=== PATIENT | female | born 1960 | race Caucasian/White ===

== ENCOUNTER 2017-07-26 12:28 | Day surgery (SDC) | payer OTHER ==
[2017-07-26] VITALS (21 sets, daily range): BP systolic 88–179; BP diastolic 58–102; PULSE 17–92; RESP 16–21; Ht 149.9 cm; Wt 54.9 kg
[~2017-07-26] VITALS: Ht 149.9 cm; Wt 54.9 kg
[~2017-07-26 12:28] MED LIST: BACTDS PO; CEFAZOLIN 2 GM/50 ML (PMX) 50 ML IVPB ONE; CEFAZOLIN 2 GM/50 ML (PMX) 50 ML IVPB SCH; CEPH-443 PO; HYDR-906 PO; NEOSTIGMINE 3 MG/3 ML SYRINGE ONE; SOD CHLORIDE 0.9% 1,000 ML IV ONE; SOD CHLORIDE 0.9% 1,000 ML IV SCH; [UNRECOGNIZED DRUG - REMARK] PO
[2017-07-26] MEDS ORDERED: INSULIN ASPART [NOVOLOG] 3 ML PEN SC ONE (14:30)
[2017-07-26] MEDS ORDERED: AMIT10TA6 PO (14:31)
[2017-07-26] MEDS ORDERED: LOSA25TA5 PO (14:31)
[2017-07-26] MEDS ORDERED: VENL75CA89 PO (14:31)
[2017-07-26] MEDS ORDERED: [UNRECOGNIZED DRUG - OTHER] PO (14:31)
[2017-07-26] MEDS ORDERED: GLIM4TAB PO (14:31)
[2017-07-26] MEDS ORDERED: METF500T4 PO (14:31)
[2017-07-26] MEDS ORDERED: SUMA20SP NS (14:31)
[2017-07-26] MEDS ORDERED: OMEP40CA6 PO (14:31)
[2017-07-26] MEDS ORDERED: ATOR40TA68 PO (14:31)
[2017-07-26] MEDS ORDERED: SITA100T8 PO (14:31)
[2017-07-26] MEDS ORDERED: CITA-104 PO (14:31)
[2017-07-26] MEDS ORDERED: GABA300S PO (14:31)
[2017-07-26] MEDS ORDERED: MECL-113 PO (14:31)
[2017-07-26] MEDS ORDERED: MELO7.5O PO (14:31)
[2017-07-26] MEDS ORDERED: INSU100I33 SC (14:31)
[2017-07-26] MEDS ORDERED: CHOL100062 PO (14:31)
[2017-07-26] MEDS ORDERED: CARI350T29 PO (14:31)
[2017-07-26] MEDS ORDERED: MIDAZOLAM 1 MG/ML 2 ML INJ ONE (15:09)
[2017-07-26] MEDS ORDERED: BUPIVACAINE 0.25% (MPF) 30 ML INJ ONE (15:27)
[2017-07-26] MEDS ORDERED: BUPIVACAINE 0.25% (MPF) 30 ML INJ INJ ONE (15:32)
[2017-07-26] MEDS ORDERED: ROCURONIUM 50 MG INJ ONE (15:54)
[2017-07-26] MEDS ORDERED: LIDOCAINE 2% (SDV) 5 ML INJ ONE (15:54)
[2017-07-26] MEDS ORDERED: PROPOFOL 20 ML ONE (15:54)
[2017-07-26] MEDS ORDERED: CEFAZOLIN 1 GM INJ ONE (15:54)
[2017-07-26] MEDS ORDERED: ONDANSETRON 4 MG INJ ONE (15:55)
[2017-07-26] MEDS ORDERED: GLYCOPYRROLATE 0.4 MG INJ ONE (15:55)
--- NOTE | 2017-07-26 15:55 | OPR ---
Date/Time of Note Date/Time of Note DATE: 07/26/17 TIME: 15:52 Operative Report Procedure Date: Jul 26, 2017 Preoperative Diagnosis symptomatic gallstones Postoperative Diagnosis same Operation/Procedure Performed 1. laparoscopic cholecystectomy 2. therapeutic injection of subcutaneous local anesthesia Surgeon see signature line Director Of Dance none Anesthesia Type: general Estimated Blood Loss: 0 - 10 ml's Transfusion none Specimen gallbladder Grafts/Implants none Complications none Pt Condition Post Procedure: stable Indications This is a 56-year-old female with symptomatic gallstones. She requests surgical excision of her gallbladder. Risks alternatives benefits and percent were discussed with the patient. Patient expresses understanding and consents to the operation. Procedure Description Patient is taken to the OR and prepped and draped in usual sterile fashion. Surgical timeout was performed. IV antibiotics were given. Supraumbilical midline incision is made with a 15 blade. Dissection cauterie carried onto the fascia. The midline is opened and the balloon Ramirez trocar is introduced. Pneumoperitoneum is established. Midepigastric 12 mm optical trocar was placed under direct visualization. Right upper quadrant upper flank 5 mm optical trochars were placed under direct visualization. Upon initial inspection there are some adhesions to the gallbladder. The gallbladder was retracted in the lateral and our direction. Her cautery was used for lateral dissection. Careful dissection of the cystic duct was performed. This allowed visualization of the critical view. The cystic duct was divided with 3 clips proximal and distally with a 35 mm echelon vascular stapler due to thickened tissue. The cystic artery was divided with 3 clips proximal and clip distal. The gallbladder was taken off the gallbladder bed. There is good hemostasis. The gallbladder was retrieved using Endo Catch bag. Ports removed under direct visualization. Subumbilical midline incision was closed with a [id number] 0 Vicryl suture. Skin was closed using interrupted 4-0 Monocryl and inzorb observable skin stapler. There appears to contains local anesthesia was injected throughout the incision site. Dressings were applied. Duane CRAIN Jul 26, 2017 15:55
[2017-07-26] MEDS ORDERED: HYDROCODONE/APAP (5/325) TAB PO ONE (16:00)
[2017-07-26] MEDS ORDERED: DIPHENHYDRAMINE 50 MG INJ IV PRN (16:30)
[2017-07-26] MEDS ORDERED: FENTAnyl 50 MCG/ML VIAL IV PRN (16:30)
[2017-07-26] MEDS ORDERED: METOCLOPRAMIDE 10 MG INJ IV PRN (16:30)
[2017-07-26] MEDS ORDERED: MEPERIDINE 25 MG INJ IV PRN (16:30)
[2017-07-26] MEDS ORDERED: HYDROmorphONE (0.2 MG/ML) 10ML SYG IV PRN ×2 (16:30)
[2017-07-26] MEDS ORDERED: ONDANSETRON 4 MG INJ IV PRN (16:30)
[2017-07-26] MEDS ORDERED: hydrALAzine 20 MG INJ ONE (16:51)
[2017-07-26] MEDS ORDERED: hydrALAzine 20 MG INJ IV ONE (17:30)
== END 2017-07-26 18:39 | disposition home or self-care (01) ==
LOC: SDS 12:28
PROVIDERS: ATTEND Surgery
DX: K80.10 Calculus of gallbladder with chronic cholecystitis without obstruction (principal); E11.9 Type 2 diabetes mellitus without complications
CPT/HCPCS: 47562; 82962; 84703; 88304; J0360; J0690; J1815; J2250; J2405; J2710; J3010; Z7512; Z7610